=== PATIENT | male | born 1990 | race Caucasian/White ===

== ENCOUNTER → 2016-12-28 | Outpatient (CLI) | payer MEDICARE, OTHER ==
[~2016-12-28] MED LIST: COLACE 100MG C100 MG GT; COMBIVENT0.074 GM/I INH; COUMADIN 5MG TAB5 MG GT; ELAVIL 25 MG TA25 MG GT; FEOSOL ELI220 MG/5 M GT; FLOVENT DISKUS50 MCG INH; LEVOCETIRIZINE D5 MG GT; LIORESAL TAB 1010 MG GT; LYRICA100 MG GT; MIRALAX17 GM GT; MULTIVITAMINS1 EAC1 GT; NEXIUM40 M1 GT; OXYCODONE HCL10 MG GT; PULMICORT0.25 MG/2 INH; SENNA8.8 MG/5 M GT; SILTUSSIN100 MG/5 M GT; SUDAFED GT; TIZANIDINE HCL4 MG GT; TRAZODONE HCL50 MG PO; VALIUM 2 MG TAB2 MG GT; VITAMIN C 250250 MG GT; VITAMIN D50000 UNIT GT; [UNRECOGNIZED DRUG - OTHER] GT
[2016-12-28 11:01] LABS: HEMOGLOBIN 10.6 gm/dl (14.0-17.5); RED BLOOD COUNT 4.31 M/UL (4.20-5.50); WHITE BLOOD COUNT 10.8 K/UL (4.5-11.0)
== END ==
LOC: LAB 10:08
PROVIDERS: Internal Medicine
DX: D64.9 Anemia, unspecified (principal); I48.91 Unspecified atrial fibrillation; N39.0 Urinary tract infection, site not specified; N31.9 Neuromuscular dysfunction of bladder, unspecified; Z79.01 Long term (current) use of anticoagulants
CPT/HCPCS: 85025; 85610; 86140

== ENCOUNTER 2020-09-29 03:05 | Inpatient (IN) | payer MEDICARE, OTHER ==
[~2020-09-29] VITALS: Ht 170.2 cm; Wt 75.6 kg
[~2020-09-29 03:05] MED LIST changes: +JEVITY 1.5 CA1500 ML GT; -MULTIVITAMINS1 EAC1 GT; +PROTONIX40 M1 PO; -SILTUSSIN100 MG/5 M GT; -TIZANIDINE HCL4 MG GT; -VITAMIN C 250250 MG GT; +XYZAL5 MG PO
[2020-09-29] MEDS ORDERED: VITAMIN C500 M4 PO (10:20)
[2020-09-29] MEDS ORDERED: SILTUSSIN100 MG/5 M PO (10:21)
[2020-09-29] MEDS ORDERED: MULTIVITAMINS1 EAC2 PO (10:22)
[2020-09-29] MEDS ORDERED: AZULFIDINE500 MG PO (11:08)
[2020-09-29 14:57] LABS: RED BLOOD COUNT 4.14 M/UL (4.20-5.50); WHITE BLOOD COUNT 11.3 K/UL (4.5-11.0)
[2020-09-29 15:40] LABS: BUN/CREATININE RATIO 45 (0-10)
[2020-09-29] MEDS ORDERED: LORATADINE10 MG PO (16:34)
[2020-09-29] MEDS ORDERED: BACLOFEN20 MG PO (16:36)
[2020-09-29] MEDS ORDERED: BACLOFEN10 MG PO (16:37)
[2020-09-29] MEDS ORDERED: CALCIUM500 MG PO (16:38)
[2020-09-29] MEDS ORDERED: BIOTIN5 M1 PO (16:39)
[2020-09-29] MEDS ORDERED: VITAMIN D21250 MCG PO (16:40)
[2020-09-29] MEDS ORDERED: LYRICA150 MG PO (16:41)
[2020-09-29] MEDS ORDERED: ORAZINC220 MG PO (16:43)
[2020-09-29] MEDS ORDERED: HYDROCODON-ACE1 EAC6 PO (16:44)
[2020-09-29] MEDS ORDERED: PYRIDIUM200 MG PO (16:45)
[2020-09-29] MEDS ORDERED: MIRALAX 119 GR119 GM PO (16:46)
[2020-09-29] MEDS ORDERED: JANTOVEN6 MG PO (17:01)
[2020-09-30 04:42] LABS: HEMOGLOBIN 10.3 gm/dl (14.0-17.5); RED BLOOD COUNT 4.25 M/UL (4.20-5.50); WHITE BLOOD COUNT 10.8 K/UL (4.5-11.0)
[2020-09-30 05:30] LABS: BUN/CREATININE RATIO 54 (0-10)
[2020-10-01 05:18] LABS: HEMOGLOBIN 10.1 gm/dl (14.0-17.5); RED BLOOD COUNT 4.13 M/UL (4.20-5.50); WHITE BLOOD COUNT 9.9 K/UL (4.5-11.0)
[2020-10-01 05:52] LABS: BUN/CREATININE RATIO 50 (0-10)
[2020-10-02 06:40] LABS: HEMOGLOBIN 9.8 gm/dl (14.0-17.5); RED BLOOD COUNT 3.89 M/UL (4.20-5.50); WHITE BLOOD COUNT 9.1 K/UL (4.5-11.0)
[2020-10-02 07:03] LABS: BUN/CREATININE RATIO 31 (0-10)
--- NOTE | 2020-10-02 23:55 | NUR ---
PT FAMILY CONCERNED ABOUT PT'S TARGET MAP BEING BETWEEN 50 - 55. STATED IN THE PAST, LOW BP LED TO PT'S GETTING COLITIS ACCORDING TO A GI SPECIALIST. PT'S FAMILY DID NOT AGREE THAT THE MAP SHOULD ONLY BE BETWEEN 50 - 55. TALKED TO DR. ARAUJO, RECEIVED ORDERS TO KEEP MAP 60.
[2020-10-03 04:56] LABS: HEMOGLOBIN 10.1 gm/dl (14.0-17.5); RED BLOOD COUNT 4.15 M/UL (4.20-5.50); WHITE BLOOD COUNT 8.7 K/UL (4.5-11.0)
[2020-10-03 05:39] LABS: BUN/CREATININE RATIO 63 (0-10)
[2020-10-03 16:11] LABS: ORGANISM ID Not indicated. (.); SPECIMEN SOURCE Urine (.); STREPTOCOCCUS PNEUMONIAE AG Negative (Negative)
[2020-10-04 04:50] LABS: HEMOGLOBIN 10.3 gm/dl (14.0-17.5); RED BLOOD COUNT 4.23 M/UL (4.20-5.50); WHITE BLOOD COUNT 8.6 K/UL (4.5-11.0)
[2020-10-04 05:07] LABS: BUN/CREATININE RATIO 70 (0-10)
[2020-10-05 04:31] LABS: HEMOGLOBIN 10.6 gm/dl (14.0-17.5); RED BLOOD COUNT 4.27 M/UL (4.20-5.50)
[2020-10-05 04:53] LABS: BUN/CREATININE RATIO 75 (0-10)
[2020-10-06 05:54] LABS: HEMOGLOBIN 10.2 gm/dl (14.0-17.5); RED BLOOD COUNT 4.06 M/UL (4.20-5.50); WHITE BLOOD COUNT 9.2 K/UL (4.5-11.0)
[2020-10-06 06:06] LABS: BUN/CREATININE RATIO 80 (0-10)
[2020-10-08 02:39] LABS: HEMOGLOBIN 10.1 gm/dl (14.0-17.5); RED BLOOD COUNT 4.04 M/UL (4.20-5.50); WHITE BLOOD COUNT 9.1 K/UL (4.5-11.0)
[2020-10-08 03:27] LABS: BUN/CREATININE RATIO 57 (0-10)
--- NOTE | 2020-10-08 19:30 | NUR ---
PTs AUNT DID EVERY THING FOR HIM INCLUDING SUCTIONING. SHE REFUSED TO LET ME HELP AND RE DONE EVERYTHING I TRIED TO DO FOR HIM. SHE WAS NICE ABOUT IT BUT SHE STILL MADE SURE TO SHOW THAT SHE WAS THE ONE THAT DONE EVERYTHING FOR HIM.
[2020-10-09 03:46] LABS: HEMOGLOBIN 10.9 gm/dl (14.0-17.5); RED BLOOD COUNT 4.4 M/UL (4.20-5.50); WHITE BLOOD COUNT 9.3 K/UL (4.5-11.0)
[2020-10-09 03:55] LABS: BUN/CREATININE RATIO 66 (0-10)
[2020-10-11 06:16] LABS: HEMOGLOBIN 10.9 gm/dl (14.0-17.5); RED BLOOD COUNT 4.36 M/UL (4.20-5.50)
[2020-10-11 06:49] LABS: BUN/CREATININE RATIO 61 (0-10)
[2020-10-12 05:34] LABS: HEMOGLOBIN 10.7 gm/dl (14.0-17.5); RED BLOOD COUNT 4.3 M/UL (4.20-5.50); WHITE BLOOD COUNT 9.6 K/UL (4.5-11.0)
[2020-10-12 05:58] LABS: BUN/CREATININE RATIO 58 (0-10)
[2020-10-12] MEDS ORDERED: JANTOVEN10 MG PO (14:22)
[2020-10-12] MEDS ORDERED: MIDODRINE HCL2.5 MG GT (14:22)
[2020-10-12] MEDS ORDERED: ZYVOX600 MG PO (14:22)
== END 2020-10-12 18:36 | disposition home or self-care (01) | DRG 698 ==
LOC: CDU 03:05 → MED SURG 4 12:12 → CCU 12:12 → PROG CARE 10-06 09:20 → MED SURG 4 10-09 18:17
PROVIDERS: Family Medicine; Internal Medicine; Internal Medicine Infectious Disease; Physician Assistant Medical; ADMIT Internal Medicine
PROC: 5A1945Z Respiratory Ventilation, 24-96 Consecutive Hours (ICD-10-PCS; principal; 2020-09-29)
DX: T83.511A Infection and inflammatory reaction due to indwelling urethral catheter, initial encounter (principal); L89.154 Pressure ulcer of sacral region, stage 4; A41.02 Sepsis due to Methicillin resistant Staphylococcus aureus; A41.52 Sepsis due to Pseudomonas; A41.89 Other specified sepsis; R65.21 Severe sepsis with septic shock; J15.212 Pneumonia due to Methicillin resistant Staphylococcus aureus; J96.21 Acute and chronic respiratory failure with hypoxia; R53.2 Functional quadriplegia; J96.22 Acute and chronic respiratory failure with hypercapnia; J69.0 Pneumonitis due to inhalation of food and vomit; N30.00 Acute cystitis without hematuria; N20.0 Calculus of kidney; M24.50 Contracture, unspecified joint; I95.9 Hypotension, unspecified; H54.7 Unspecified visual loss; E87.70 Fluid overload, unspecified; Z87.820 Personal history of traumatic brain injury; Z86.718 Personal history of other venous thrombosis and embolism; Z74.01 Bed confinement status; Z93.1 Gastrostomy status; Z93.0 Tracheostomy status; Z93.3 Colostomy status; Z91.19 Patient's noncompliance with other medical treatment and regimen; Z90.49 Acquired absence of other specified parts of digestive tract
CPT/HCPCS: 36415; 36600; 71045; 80048; 80053; 80170; 80202; 81001; 82140; 82803; 83605; 83735; 83880; 84100; 84132; 85025; 85027; 85610; 86140; 87070; 87077; 87081; 87086; 87186; 87205; 87278; 87899; 94002; 94003; 94760; C1751; C9113; J1580; J1940; J2020; J2185; J2270; J2543; J3370; J7030; J7040; J7070; P9047

== ENCOUNTER 2020-11-20 02:13 | Inpatient (IN) | payer MEDICARE, OTHER ==
[~2020-11-20] VITALS: Ht 170.2 cm; Wt 75.8 kg
[~2020-11-20 02:13] MED LIST changes: +AZULFIDINE500 MG PO; +BACLOFEN10 MG PO; +BACLOFEN20 MG PO; +BIOTIN5 M1 PO; +CALCIUM500 MG PO; +HYDROCODON-ACE1 EAC6 PO; +JANTOVEN10 MG PO; +JANTOVEN6 MG PO; +LORATADINE10 MG PO; +LYRICA150 MG PO; +MIDODRINE HCL2.5 MG GT; +MIRALAX 119 GR119 GM PO; +MULTIVITAMINS1 EAC2 PO; +ORAZINC220 MG PO; +PYRIDIUM200 MG PO; +SILTUSSIN100 MG/5 M PO; +VITAMIN C500 M4 PO; +VITAMIN D21250 MCG PO; +ZYVOX600 MG PO
[2020-11-22] MEDS ORDERED: JUVEN PACKET1 EACH PO (04:57)
[2020-11-22] MEDS ORDERED: SILTUSSIN100 MG/5 M PO (04:58)
[2020-11-22] MEDS ORDERED: MELATONIN3 MG PO (04:59)
[2020-11-22] MEDS ORDERED: GAS RELIEF 8080 MG PO (05:00)
[2020-11-22] MEDS ORDERED: JANTOVEN7.5 MG PO (05:02)
[2020-11-22] MEDS ORDERED: BUMETANIDE1 MG PO (05:03)
[2020-11-22] MEDS ORDERED: FERROUS SU220 MG/5 M PO (05:04)
[2020-11-22 05:05] LABS: HEMOGLOBIN 10.6 gm/dl (14.0-17.5); RED BLOOD COUNT 3.93 M/UL (4.20-5.50); WHITE BLOOD COUNT 8.9 K/UL (4.5-11.0)
[2020-11-22 05:21] LABS: BUN/CREATININE RATIO 47 (0-10)
--- NOTE | 2020-11-22 16:35 | NUR ---
11/22/20 1430 PLACED ON ENVELLA BED
[2020-11-23] MEDS ORDERED: OMEPRAZOLE PO (04:55)
[2020-11-23 08:10] LABS: HEMOGLOBIN 10.3 gm/dl (14.0-17.5); RED BLOOD COUNT 3.95 M/UL (4.20-5.50); WHITE BLOOD COUNT 7.7 K/UL (4.5-11.0)
[2020-11-23 08:29] LABS: BUN/CREATININE RATIO 42 (0-10)
[2020-11-23] MEDS ORDERED: ZANAFLEX 4 MG TA4 MG PO (10:22)
[2020-11-23] MEDS ORDERED: FLORASTOR250 MG PO (11:07)
[2020-11-23] MEDS ORDERED: IPRAT-ALBUT 0.5-3 ML INH (12:54)
[2020-11-23] MEDS ORDERED: PULMICORT0.5 MG/2 M INH (12:55)
--- NOTE | 2020-11-23 14:33 | NUR ---
11/23/20 1345 AUNT REFUSES TO USE ALLEVYN ON COCCYX WOUND, STATES THAT IT CAUSES HIM TO SWEAT, AQUACELL PLACED LOOSELY AND COVERED WITH 2X2
[2020-11-23] MEDS ORDERED: OXYBUTYNIN5 MG/5 ML PO (16:44)
--- NOTE | 2020-11-23 19:59 | NUR ---
PATIENT MOVED TO ANOTHER SAND BED VIA 4 STAFF MEMBERS
[2020-11-24 06:17] LABS: HEMOGLOBIN 10.8 gm/dl (14.0-17.5); RED BLOOD COUNT 4.03 M/UL (4.20-5.50); WHITE BLOOD COUNT 8.6 K/UL (4.5-11.0)
[2020-11-24 06:39] LABS: BUN/CREATININE RATIO 68 (0-10)
[2020-11-25 05:10] LABS: RED BLOOD COUNT 4.09 M/UL (4.20-5.50); WHITE BLOOD COUNT 9.7 K/UL (4.5-11.0)
[2020-11-25 05:37] LABS: BUN/CREATININE RATIO 91 (0-10)
[2020-11-25 10:35] LABS: RED BLOOD COUNT 4.04 M/UL (4.20-5.50)
[2020-11-25 10:58] LABS: BUN/CREATININE RATIO 81 (0-10)
[2020-11-26 04:03] LABS: HEMOGLOBIN 10.9 gm/dl (14.0-17.5); RED BLOOD COUNT 4.09 M/UL (4.20-5.50); WHITE BLOOD COUNT 12.1 K/UL (4.5-11.0)
[2020-11-26 04:23] LABS: BUN/CREATININE RATIO 114 (0-10)
[2020-11-27 03:47] LABS: HEMOGLOBIN 10.8 gm/dl (14.0-17.5); RED BLOOD COUNT 3.96 M/UL (4.20-5.50)
[2020-11-27 03:49] LABS: WHITE BLOOD COUNT 21.5 K/UL (4.5-11.0)
[2020-11-27 04:16] LABS: BUN/CREATININE RATIO 109 (0-10)
[2020-11-28 04:26] LABS: HEMOGLOBIN 10.4 gm/dl (14.0-17.5); RED BLOOD COUNT 3.75 M/UL (4.20-5.50); WHITE BLOOD COUNT 20.7 K/UL (4.5-11.0)
[2020-11-28 04:51] LABS: BUN/CREATININE RATIO 118 (0-10)
[2020-11-29 03:08] LABS: HEMOGLOBIN 9.7 gm/dl (14.0-17.5); RED BLOOD COUNT 3.6 M/UL (4.20-5.50)
[2020-11-29 03:09] LABS: WHITE BLOOD COUNT 13.9 K/UL (4.5-11.0)
[2020-11-29 03:38] LABS: BUN/CREATININE RATIO 128 (0-10)
--- NOTE | 2020-11-29 05:44 | NUR ---
0530-PATIENT BED SAYING CPR BUTTON FAILURE. I NOTIFIED HISTORIAN RESEARCH ASSISTANT WE WERE UNABLE TO GET BED TO WORK SO I NOTIFIED [employer] AND WAS TOLD THAT THEY WOULD PAGE A RAIL CAR UNLOADER AND HAVE THEM CALL ME BACK. UNABLE TO GIVE MEDS OR RUN FEEDS AT THIS TIME DUE TO PATIENT BED BEING IN FLAT POSITION.
[2020-11-30 04:35] LABS: HEMOGLOBIN 9.8 gm/dl (14.0-17.5); RED BLOOD COUNT 3.66 M/UL (4.20-5.50)
[2020-11-30 04:55] LABS: BUN/CREATININE RATIO 110 (0-10)
[2020-11-30 05:22] LABS: WHITE BLOOD COUNT 10.1 K/UL (4.5-11.0)
[2020-12-01 07:00] LABS: HEMOGLOBIN 9.6 gm/dl (14.0-17.5); RED BLOOD COUNT 3.59 M/UL (4.20-5.50); WHITE BLOOD COUNT 12.6 K/UL (4.5-11.0)
[2020-12-01 07:30] LABS: BUN/CREATININE RATIO 96 (0-10)
[2020-12-01] MEDS ORDERED: ZOSYN 4.5 GM A4.5 GM IV (13:20)
[2020-12-01] MEDS ORDERED: ZYVOX600 MG PEG (13:20)
[2020-12-01 18:01] LABS: HEMOGLOBIN 9.9 gm/dl (14.0-17.5); RED BLOOD COUNT 3.58 M/UL (4.20-5.50); WHITE BLOOD COUNT 15.1 K/UL (4.5-11.0)
[2020-12-01 18:19] LABS: BUN/CREATININE RATIO 72 (0-10)
[2020-12-02 10:45] LABS: HEMOGLOBIN 9.7 gm/dl (14.0-17.5); RED BLOOD COUNT 3.58 M/UL (4.20-5.50); WHITE BLOOD COUNT 12.2 K/UL (4.5-11.0)
[2020-12-02 11:16] LABS: BUN/CREATININE RATIO 109 (0-10)
== END 2020-12-02 15:17 | disposition home or self-care (01) | DRG 698 ==
LOC: MED SURG 4 11-22 04:32
PROVIDERS: Internal Medicine; Internal Medicine Infectious Disease; ADMIT Internal Medicine
DX: T83.511A Infection and inflammatory reaction due to indwelling urethral catheter, initial encounter (principal); J18.9 Pneumonia, unspecified organism; G82.50 Quadriplegia, unspecified; A41.52 Sepsis due to Pseudomonas; A41.89 Other specified sepsis; G92 Toxic encephalopathy; N30.00 Acute cystitis without hematuria; J98.11 Atelectasis; Z16.30 Resistance to unspecified antimicrobial drugs; T42.6X5A Adverse effect of other antiepileptic and sedative-hypnotic drugs, initial encounter; T40.605A Adverse effect of unspecified narcotics, initial encounter; Y92.239 Unspecified place in hospital as the place of occurrence of the external cause; D72.829 Elevated white blood cell count, unspecified; Z20.822 Contact with and (suspected) exposure to COVID-19; L89.152 Pressure ulcer of sacral region, stage 2; E87.6 Hypokalemia; Z74.01 Bed confinement status; Z86.718 Personal history of other venous thrombosis and embolism; Z79.01 Long term (current) use of anticoagulants; Z79.899 Other long term (current) drug therapy; Z93.1 Gastrostomy status; Z87.820 Personal history of traumatic brain injury; Z93.0 Tracheostomy status; Z93.3 Colostomy status
CPT/HCPCS: 36415; 36600; 70450; 71045; 71250; 80048; 80053; 80202; 81001; 82140; 82803; 82962; 83605; 83735; 85025; 85610; 86140; 87040; 87070; 87077; 87081; 87086; 87186; 87205; 87449; 94640; 94664; 94760; C9113; J1940; J2185; J2310; J2543; J3370; J7070; U0002